=== PATIENT | male | born 1960 | race American Indian/Alaskan Native ===

== ENCOUNTER 2018-08-27 01:39 | Inpatient (IN) | payer OTHER ==
[2018-08-27 02:39] LABS: Hematocrit 39.4 % (35.5-45.6); Hemoglobin 13.1 gm/dl (11.8-15.2); Mean Corpuscular HGB Conc 33 % (32-34); Mean Corpuscular Volume 89 fl (84-94); Platelet Count 116 K/mm3 (140-440); Red Blood Count 4.44 M/mm3 (3.65-5.03); Red Cell Distribution Width 13.6 % (13.2-15.2)
[2018-08-27 03:06] LABS: Alanine Aminotransferase 17 units/L (7-56); BUN/Creatinine Ratio 14; Blood Urea Nitrogen 13 mg/dL (9-20); Calcium 8.7 mg/dL (8.4-10.2); Hemolysis Index 4
[2018-08-27] MEDS ORDERED: ZOFRAN IV ONE (03:53)
[2018-08-27] MEDS ORDERED: MORPHINE IV ONE (03:53)
--- NOTE | 2018-08-27 04:02 | Emergency Department Report ---
HPI - General Chief Complaint: Abdominal Pain Time Seen by Provider: 08/27/18 03:48 - HPI HPI: 58-year-old male presents to the emergency department with complaint of generalized abdominal pain, worse towards the lower quadrants, has been going on since about 11 PM last night. He denies any fever, nausea, vomiting, dysuria, constipation or diarrhea. He denies any past medical or surgical history. He has not taken anything for his symptoms prior to arrival. No recent travel or sick contacts at home. He does not have a primary care physician. ED Past Medical Hx - Social History Smoking Status: Never Smoker Substance Use Type: None - Medications Home Medications: Home Medications Medication Instructions Recorded Confirmed Last Taken Type traMADol [Ultram 50 MG tab] 50 mg PO Q8HR PRN #20 tablet 03/16/13 Unknown Rx ED Review of Systems ROS: Stated complaint: ABD PAIN Other details as noted in HPI Comment: All other systems reviewed and negative Constitutional: denies: chills, fever Eyes: denies: eye pain, vision change ENT: denies: ear pain, throat pain Respiratory: denies: cough, shortness of breath Cardiovascular: denies: chest pain, palpitations Gastrointestinal: abdominal pain. denies: nausea, vomiting Genitourinary: denies: dysuria, discharge Musculoskeletal: denies: back pain, arthralgia Skin: denies: rash, lesions Neurological: denies: headache, weakness Physical Exam - Physical Exam Vital Signs: Vital Signs 08/27/18 01:49 Temperature 98.0 F Pulse Rate 75 Respiratory 18 Rate Blood Pressure 154/85 O2 Sat by Pulse 99 Oximetry Physical Exam: GENERAL: The patient is well-developed well-nourished. HEENT: Normocephalic. Atraumatic. Patient has moist mucous membranes. EYES: Extraocular motions are intact. Pupils are equal and reactive to light bilaterally. NECK: Supple. Trachea is midline. CHEST/LUNGS: Clear to auscultation. There is no respiratory distress noted. HEART/CARDIOVASCULAR: Regular. There is no tachycardia. There is no obvious murmur. ABDOMEN: Abdomen is soft. Patient has tenderness to palpation to the lower and periumbilical abdomen. No guarding. Patient has normal bowel sounds. There is no abdominal distention. SKIN: Skin is warm and dry. NEURO: The patient is awake, alert, and oriented. The patient is cooperative. The patient has no focal neurologic deficits. The patient has normal speech. MUSCULOSKELETAL: There is no tenderness or deformity. There is no evidence of acute injury. ED Course Vital Signs 08/27/18 01:49 Temperature 98.0 F Pulse Rate 75 Respiratory 18 Rate Blood Pressure 154/85 O2 Sat by Pulse 99 Oximetry ED Medical Decision Making - Lab Data Result diagrams: 08/27/18 02:20 08/27/18 02:20 - Radiology Data Radiology results: report reviewed - Medical Decision Making Patient presents with complaint of abdominal pain since last night around 11 PM. On examination it is mostly lower quadrant and periumbilical. Labs have been unremarkable. CT with IV contrast of the abdomen and pelvis came back showing concerns for acute appendicitis. I spoke with the general surgeon airport control operator, Dr. León, who plans to take him to the operating room this morning for an appendectomy. - Differential Diagnosis appendicitis, colitis, diverticulitis, food poisoning Critical Care Time: No Critical care attestation.: If time is entered above; I have spent that time in minutes in the direct care of this critically ill patient, excluding procedure time. ED Disposition Clinical Impression: Acute appendicitis Qualifiers: Acute appendicitis type: with generalized peritonitis Appendicitis gangrene presence: without gangrene Appendicitis perforation presence: unspecified whether perforation present Appendicitis abscess presence: without abscess Qualified Code(s): K35.20 - Acute appendicitis with generalized peritonitis, without abscess Abdominal pain Qualifiers: Abdominal location: unspecified location Qualified Code(s): R10.9 - Unspecified abdominal pain Disposition: OP ADMIT IP TO THIS HOSP Is pt being admited?: Yes Condition: Fair Time of Disposition: 06:26
[2018-08-27 04:17] LABS: Bilirubin,Urine NEG (Negative); Blood,Urine NEG (Negative); Color,Urine Yellow (Yellow); Mucus,Urine FEW /HPF; Protein,Urine <15 mg/dL mg/dL (Negative); Urobilinogen,Urine < 2.0 mg/dL (<2.0)
--- NOTE | 2018-08-27 05:58 | Cat Scan Report ---
FINAL REPORT EXAM: CT ABDOMEN PELVIS W CON HISTORY: Generalized abd pain TECHNIQUE: CT images are acquired through the Abdomen and Pelvis arterial and delayed phases followi ng intravenous administration of contrast. Transaxial, coronal and sagittal reformations are provided . PRIORS: None FINDINGS: Partially visualized intrathoracic contents are unremarkable. The liver, gallbladder, pancreas, spleen, and adrenal glands are unremarkable. Kidneys show no worrisome lesions, hydronephrosis, or calculi. Urinary bladder is unremarkable. Small and large bowel are normal in caliber. The appendix is fluid-filled and dilated measuring up to 13 millimeters with periappendiceal stranding and edema. No pneumoperitoneum or focal fluid collecti on to suggest abscess formation. Aorta is normal in course and caliber. Superficial soft tissues are unremarkable. No acute or aggressive appearing skeletal findings. IMPRESSION: Acute appendicitis. Dr. Aviles discussed findings with PILI Peck at 0456 central Time on 08/27/2018 immediately following the examination.
[2018-08-27] MEDS ORDERED: ZOSYN/NS 4.5GM/100ML 4.5 GM/100 ML VIAL IV ONE (06:00)
--- NOTE | 2018-08-27 07:00 | Anesthesia Consultation ---
Anesthesia Consult and Med Hx - Airway Anesthetic Teeth Evaluation: Chipped (front left) ROM Head & Neck: Adequate Mental/Hyoid Distance: Adequate Mallampati Class: Class II Intubation Access Assessment: Probably Good - Pulmonary Exam CTA: Yes - Cardiac Exam Cardiac Exam: RRR - Pre-Operative Health Status ASA Pre-Surgery Classification: ASA2 Proposed Anesthetic Plan: General - Pulmonary Hx Smoking: No
--- NOTE | 2018-08-27 07:01 | Anesthesia Day of Surgery ---
Anesthesia Day of Surgery - Day of Surgery Patient Examined: Yes Patient H&P Reviewed: Yes Patient is NPO: Yes Beta Blockers: No Cardiac Clearance: No Pulmonary Clearance: No Khoa's Test: N/A
[2018-08-27] MEDS ORDERED: LACTATED RINGERS 1,000 ML IV SCH (07:43)
[2018-08-27] MEDS ORDERED: SUBLIMAZE IV NR (07:43)
[2018-08-27] MEDS ORDERED: PEPCID IV NR (07:43)
[2018-08-27] MEDS ORDERED: XYLOCAINE MPF 2% ONE (09:26)
[2018-08-27] MEDS ORDERED: DILAUDID ONE (09:26)
[2018-08-27] MEDS ORDERED: DECADRON ONE (09:26)
[2018-08-27] MEDS ORDERED: ZOFRAN ONE (09:26)
[2018-08-27] MEDS ORDERED: DIPRIVAN 10 MG/ML IV ONE (09:27)
[2018-08-27] MEDS ORDERED: ZEMURON IV ONE (09:28)
[2018-08-27] MEDS ORDERED: MARCAINE-EPI 0.5%-1:200,000 INFILTRATI ONE ×2 (09:51→09:57)
[2018-08-27] MEDS ORDERED: NACL 0.9% IR ONE (09:57)
--- NOTE | 2018-08-27 10:17 | History and Physical Report ---
ADMITTING DIAGNOSIS: Rule out appendicitis. HISTORY OF PRESENT ILLNESS: The patient is a 58-year-old gentleman, who presents to the Emergency Room with a ____ history of periumbilical abdominal pain that has since radiated to the right lower quadrant and is progressively getting worse. PAST MEDICAL HISTORY: Negative. PAST SURGICAL HISTORY: Negative. ALLERGIES: No known allergies. MEDICATIONS: No medications. FAMILY HISTORY: Negative. SOCIAL HISTORY: Occasional beer but very limited, and denies any smoking. PHYSICAL EXAMINATION: GENERAL: Physical examination at this time reveals the patient to be awake, alert, cooperative, in some discomfort, but no acute distress. VITAL SIGNS: Show him to be afebrile with the temperature of 98.4, blood pressure is 183/70 presumably secondary to the pain, pulse is 75, respirations 20. HEENT: Pupils are equal and reactive to light and accommodation. Sclerae are nonicteric. NECK: Supple, no thyromegaly or adenopathy. CHEST: Clear to auscultation and percussion. HEART: Normal sinus rhythm. No gross murmurs. ABDOMEN: Examination of the abdomen reveals to be moderately obese. There is generalized tenderness, more so in the lower abdomen and more so in the right lower quadrant with some guarding. Bowel sounds are hypoactive. EXTREMITIES: Show full range of motion x 4, no edema or cyanosis. NEUROLOGIC: Examination is grossly within normal limits. LABORATORY DATA AND IMAGING STUDIES: Lab work at present includes a CBC, which shows a white count of 8.4, H and H is 13 and 41. Electrolytes are essentially within normal limits. LFTs are also within normal limits. A CT scan of the abdomen has been performed whose findings revealed evidence of periappendiceal inflammation consistent with acute appendicitis. IMPRESSION: At this time is that of a 58-year-old gentleman, rule out acute appendicitis. PLAN: Plan is to proceed with laparoscopic appendectomy, possible open appendectomy. Risk, indication and complications have been reviewed with the patient, who understands and has signed his consent. JOB# [id number] SHANE/NTS
[2018-08-27] MEDS ORDERED: ROBINUL ONE ×2 (10:39→10:48)
[2018-08-27] MEDS ORDERED: BLOXIVERZ ONE (10:49)
[2018-08-27] MEDS ORDERED: ZOFRAN IV PRN (11:13)
--- NOTE | 2018-08-27 11:57 | Operative Report ---
PREOPERATIVE DIAGNOSIS: Rule out acute appendicitis. POSTOPERATIVE DIAGNOSIS: Suppurative appendicitis. PROCEDURE: Laparoscopic appendectomy. SURGEON: Mart León MD ANESTHESIA: General, ESTIMATED BLOOD LOSS: Minimal. DRAINS: None. COMPLICATIONS: None. DESCRIPTION OF PROCEDURE: The patient was taken to the operating room, prepped and draped in usual sterile fashion. Veress needle was inserted and CO2 insufflation begun. A 5 mm trocar was inserted and camera inserted. All other trocars were inserted under direct visualization. The patient was then placed in a steep Trendelenburg left lateral decubitus position. Thus, the cecum was identified and the tenia followed down to the suppurative appendicitis. The tip of the appendix identified and gently grasped with a Ana. The mesoappendix was secured with Harmonic scalpel. The base of the appendix was then identified. An Endo-ROBBIE stapler was used to secure the appendiceal base. The appendix was then placed in the Endopouch and brought out through the infraumbilical port site. This port was then gently reintroduced. The entire area was then carefully inspected. The staple line was noted to be intact with no evidence of any bleeding or oozing. A 4 x 4 was placed in the area and the entire area dried and the sponge removed. Once again, the area inspected and noted to be dry. The fascia at the infraumbilical site was closed with a [id number] 0 Vicryl suture. The repair was inspected through the lateral 5 mm port to assure no entrapment of bowel or omentum, none was seen. Two 5 mm ports were removed under direct visualization. No bleeding or oozing noted. The final 5 mm port was used to expel the CO2 and the trocar removed. The skin at all port sites was closed with subcuticular 4-0 Vicryl. A 0.5% Marcaine was infiltrated over the areas for postoperative pain relief. The patient tolerated the procedure well. JOB# [id number] SHANE/LEELEE
[2018-08-27] MEDS: LEVAQUIN 500MG/100ML 500 MG/100 ML BAG IV SCH (14:10)
[2018-08-27] MEDS: D5W/0.45% NACL/KCL 20 MEQ 20 MEQ/1,000 ML BAG IV SCH ×2 (14:10→21:27)
[2018-08-27] MEDS: FLAGYL 500 MG/100 ML 500 MG/100 ML BAG IV SCH ×2 (15:46→21:20)
[2018-08-27] MEDS: MORPHINE IV PRN (21:28)
[2018-08-28 04:18] LABS: Eosinophils % (Auto) 0.1 % (0.0-4.3); Hematocrit 35.8 % (35.5-45.6); Hemoglobin 11.9 gm/dl (11.8-15.2); Lymphocytes # (Auto) 0.9 K/mm3 (1.2-5.4); Lymphocytes % (Auto) 10.8 % (13.4-35.0); Mean Corpuscular HGB Conc 33 % (32-34); Mean Corpuscular Volume 87 fl (84-94); Monocytes # (Auto) 0.6 K/mm3 (0.0-0.8); Platelet Count 122 K/mm3 (140-440); Red Blood Count 4.13 M/mm3 (3.65-5.03); Red Cell Distribution Width 13.5 % (13.2-15.2)
[2018-08-28 04:41] LABS: Alanine Aminotransferase 13 units/L (7-56); Albumin 3.7 g/dL (3.9-5); BUN/Creatinine Ratio 13; Blood Urea Nitrogen 10 mg/dL (9-20); Calcium 8.6 mg/dL (8.4-10.2); Hemolysis Index 13
[2018-08-28] MEDS: FLAGYL 500 MG/100 ML 500 MG/100 ML BAG IV SCH ×3 (06:07→22:32)
[2018-08-28] MEDS: MORPHINE IV PRN ×3 (06:09→17:33)
[2018-08-28] MEDS: LEVAQUIN 500MG/100ML 500 MG/100 ML BAG IV SCH (09:05)
[2018-08-28] MEDS: D5W/0.45% NACL/KCL 20 MEQ 20 MEQ/1,000 ML BAG IV SCH ×2 (09:06→17:34)
--- NOTE | 2018-08-28 11:57 | Progress Note ---
Assessment and Plan POD # 1 Pt feeling "much better". neg flatus Abd 1+ distended. non tender. incisions clean & dry stable IS q [address] ice chips and po meds Selected Entries 08/28/18 08/28/18 08:57 08:59 Temperature 98.7 F Pulse Rate 73 Respiratory 20 Rate Blood Pressure 133/80 Laboratory Tests 08/27/18 08/28/18 02:20 04:06 WBC 9.0 8.7 Hgb 13.1 11.9 Hct 39.4 35.8 Objective Vital Signs - 12hr 08/28/18 08/28/18 08/28/18 04:41 08:57 08:59 Temperature 98.7 F 98.7 F Pulse Rate 74 73 Respiratory 20 20 Rate Respiratory Rate [Abdomen] Blood Pressure 137/73 133/80 O2 Sat by Pulse 94 96 Oximetry 08/28/18 08/28/18 08/28/18 09:04 09:05 10:00 Temperature Pulse Rate Respiratory 20 20 Rate Respiratory 20 Rate [Abdomen] Blood Pressure O2 Sat by Pulse Oximetry - Labs 08/28/18 04:06 08/28/18 04:06 Diabetes panel 08/28/18 Range/Units 04:06 Sodium 137 (137-145) mmol/L Potassium 4.1 (3.6-5.0) mmol/L Chloride 101.8 (98-107) mmol/L Carbon Dioxide 24 (22-30) mmol/L BUN 10 (9-20) mg/dL Creatinine 0.8 (0.8-1.5) mg/dL Glucose 161 H (75-100) mg/dL Calcium 8.6 (8.4-10.2) mg/dL AST 15 (5-40) units/L ALT 13 (7-56) units/L Alkaline Phosphatase 72 (35-129) units/L Total Protein 7.2 (6.3-8.2) g/dL Albumin 3.7 L (3.9-5) g/dL Calcium panel 08/28/18 Range/Units 04:06 Calcium 8.6 (8.4-10.2) mg/dL Albumin 3.7 L (3.9-5) g/dL Pituitary panel 08/28/18 Range/Units 04:06 Sodium 137 (137-145) mmol/L Potassium 4.1 (3.6-5.0) mmol/L Chloride 101.8 (98-107) mmol/L Carbon Dioxide 24 (22-30) mmol/L BUN 10 (9-20) mg/dL Creatinine 0.8 (0.8-1.5) mg/dL Glucose 161 H (75-100) mg/dL Calcium 8.6 (8.4-10.2) mg/dL Adrenal panel 08/28/18 Range/Units 04:06 Sodium 137 (137-145) mmol/L Potassium 4.1 (3.6-5.0) mmol/L Chloride 101.8 (98-107) mmol/L Carbon Dioxide 24 (22-30) mmol/L BUN 10 (9-20) mg/dL Creatinine 0.8 (0.8-1.5) mg/dL Glucose 161 H (75-100) mg/dL Calcium 8.6 (8.4-10.2) mg/dL Total Bilirubin 0.30 (0.1-1.2) mg/dL AST 15 (5-40) units/L ALT 13 (7-56) units/L Alkaline Phosphatase 72 (35-129) units/L Total Protein 7.2 (6.3-8.2) g/dL Albumin 3.7 L (3.9-5) g/dL
[2018-08-28] MEDS: NORCO 5/325 PO PRN (14:55)
[2018-08-29] MEDS: D5W/0.45% NACL/KCL 20 MEQ 20 MEQ/1,000 ML BAG IV SCH (05:28)
[2018-08-29] MEDS: FLAGYL 500 MG/100 ML 500 MG/100 ML BAG IV SCH (05:29)
[2018-08-29] MEDS: NORCO 5/325 PO PRN (05:39)
[2018-08-29] MEDS: LEVAQUIN 500MG/100ML 500 MG/100 ML BAG IV SCH (09:07)
--- NOTE | 2018-08-29 11:57 | Progress Note ---
Assessment and Plan POD # 2 Pt feeling well without compl. leah cl liq diet. + flatus Abd soft, non tender stable advance to full liq diet. november d/c today if diet leah advance to reg diet at home in am po [facility] rto Mon Selected Entries 08/29/18 07:58 Temperature 97.2 F L Pulse Rate 67 Respiratory 18 Rate Blood Pressure 140/87 Laboratory Tests 08/27/18 08/28/18 02:20 04:06 WBC 9.0 8.7 Hgb 13.1 11.9 Hct 39.4 35.8 Objective Vital Signs - 12hr 08/29/18 08/29/18 05:35 07:58 Temperature 97.6 F 97.2 F L Pulse Rate 67 67 Respiratory 18 18 Rate Blood Pressure 149/84 140/87 O2 Sat by Pulse 94 95 Oximetry - Labs 08/28/18 04:06 08/28/18 04:06
--- NOTE | 2018-08-29 12:01 | Discharge Summary ---
Providers - Providers Date of Admission: 08/27/18 11:13 Attending physician: MAYURI MAYORGA Primary care physician: RATE CLERK Hospitalization Condition: Good Disposition: DC-01 TO HOME OR SELFCARE Core Measure Documentation - Palliative Care Palliative Care/ Comfort Measures: Not Applicable - Core Measures Any of the following diagnoses?: none Exam - Constitutional Vitals: Temp Pulse Resp BP Pulse Ox 97.2 F L 67 18 140/87 95 08/29/18 07:58 08/29/18 07:58 08/29/18 07:58 08/29/18 07:58 08/29/18 07:58 Plan Activity: other (full liq now. may d/c this afternoon if full liq leah. advance to solid reg diet at home in am.) Diet: other Wound: keep clean and dry (x days) Special Instructions: other Additional Instructions: no lifting over 5 lbs x 2 weeks. aleve I po q 6-8 hrs prn for breakthrough pain. Levaquin 500 mg po qd x 5 days Follow up with: JUNIOR MORRIS MD [Staff Physician] - 09/02/18
[2018-08-29 12:37] VITALS: BP 140/83
--- NOTE | 2018-08-29 14:48 | Discharge Summary ---
DISCHARGE DIAGNOSIS: Acute appendicitis. PROCEDURE WHILE IN HOSPITAL: Emergency laparoscopic appendectomy. HOSPITAL COURSE: The patient is a 58-year-old gentleman, who presented to the Emergency Room with recent onset of periumbilical abdominal pain, which has since radiated to the right lower quadrant. Pain was progressively getting worse. CT scan of the abdomen was performed, which was consistent with appendicitis. The patient's past medical and surgical history was essentially negative. At this time, the patient was taken to surgery where suppurative appendicitis was indeed confirmed and the patient underwent laparoscopic appendectomy without incident. His postoperative course has been essentially unremarkable. Currently, the patient is postoperative day #2, afebrile and feeling well. He tolerated clear liquid diet yesterday without complaints. His abdomen currently is soft and nontender. CBC this morning shows a white count of 8.7, H and H of 11.9 and 35.8. The patient will thus be advanced to a full liquid diet this morning and will tentatively be discharged today if his diet is well tolerated. The patient has been instructed to call me immediately if he has any evidence of nausea, vomiting, abdominal pain, or fever. If not, the patient will advance himself to a solid regular diet at home in the morning and follow up in the office on Sunday. The patient has also been given Levaquin 500 mg p.o. daily for the next 5 days. JOB# [id number] SHANE/LEELEE
== END 2018-08-29 15:50 | disposition home or self-care (01) | DRG 343 ==
LOC: ED 01:39 → OR 07:25 → 3B-SURG 11:13
PROVIDERS: ADMIT Surgery; ATTEND Internal Medicine
PROC: 0DTJ4ZZ Resection of Appendix, Percutaneous Endoscopic Approach (ICD-10-PCS; principal; 2018-08-27)
DX: K35.20 Acute appendicitis with generalized peritonitis, without abscess (principal)
CPT/HCPCS: 36415; 74177; 80053; 81001; 83690; 85025; 85027; 87075; 87076; 87116; 87186; 88304; G0378; J1100; J1170; J1956; J2270; J2405; J2543; J2704; J2710; J3010; J7120; Q9967